=== PATIENT | male | born 1975 | race Caucasian/White ===

== ENCOUNTER 2021-06-11 14:58 | Emergency (ER) | payer SELFPAY ==
[~2021-06-11] VITALS: Ht 182.9 cm; Wt 77.3 kg
[2021-06-11 17:18] VITALS: BP 142/88
== END 2021-06-11 17:18 | disposition home or self-care (01) ==
LOC: ED 14:58
DX: S39.012A Strain of muscle, fascia and tendon of lower back, initial encounter (principal); F17.220 Nicotine dependence, chewing tobacco, uncomplicated; X50.1XXA Overexertion from prolonged static or awkward postures, initial encounter